=== PATIENT | male | born 1975 | race Hispanic/Latino ===

== ENCOUNTER 2017-06-11 12:54 | Emergency (ER) | payer OTHER ==
[2017-06-11 13:06] VITALS: BP 125/82; PULSE 74; RESP 20; TEMP 98.4; O2SAT 97
--- NOTE | 2017-06-11 15:31 | C.PDOC ---
History Of Present Illness 41 yr old male presents to the ER for evaluation of rash to his inner thighs for the past 1 week. Patient denies fever, chills, dysuria or leg pain. Time Seen by Provider: 06/11/17 13:30 Chief Complaint (Nursing): Abnormal Skin Integrity History Per: Patient History/Exam Limitations: no limitations Onset/Duration Of Symptoms: Days (1 week) Current Symptoms Are (Timing): Still Present Past Medical History Reviewed: Historical Data, Nursing Documentation, Vital Signs Vital Signs: Last Vital Signs Temp 98.4 F 06/11/17 13:02 Pulse 74 06/11/17 13:02 Resp 20 06/11/17 13:02 BP 125/82 06/11/17 13:02 Pulse Ox 97 06/11/17 15:33 Family History: States: No Known Family Hx - Social History Hx Alcohol Use: No Hx Substance Use: No - Immunization History Hx Tetanus Toxoid Vaccination: Yes Hx Influenza Vaccination: Yes Hx Pneumococcal Vaccination: No Review Of Systems Except As Marked, All Systems Reviewed And Found Negative. Constitutional: Negative for: Fever, Chills Genitourinary: Negative for: Dysuria Musculoskeletal: Negative for: Leg Pain Skin: Positive for: Rash (inner thighs) Physical Exam - Physical Exam Appears: Non-toxic, No Acute Distress Skin: Warm, Dry, Rash (papular rash noted medial aspect of bilateral thighs) Oral Mucosa: Moist Lips: Normal Appearing Respiratory: Normal Breath Sounds, No Rales, No Rhonchi, No Stridor, No Wheezing Extremity: Normal ROM, No Swelling Neurological/Psych: Oriented x3, Normal Speech Gait: Steady ED Course And Treatment O2 Sat by Pulse Oximetry: 97 (RA) Pulse Ox Interpretation: Normal Disposition - Disposition Referrals: [facility] Yolanda Huang, [Non-Staff] - Disposition: HOME/ ROUTINE Disposition Time: 14:30 Condition: GOOD Additional Instructions: Thank you for letting us take care of you today. The emergency medical care you received today was directed at your acute symptoms. If you were prescribed any medication, please fill it and take as directed. It may take several days for your symptoms to resolve. Return to the Emergency Department if your symptoms worsen, do not improve, or if you have any other problems. Please contact your doctor or call one of the physicians/clinics you have been referred to that are listed on the Patient Visit Information form that is included in your discharge packet. Bring any paperwork you were given at discharge with you along with any medications you are taking to your follow up visit. Our treatment cannot replace ongoing medical care by a primary care provider (PCP) outside of the emergency department. Thank you for allowing the [email or web address] team to be part of your care today. Follow up with your doctor in 3-4 days for re-evaluation and further management. Prescriptions: Cephalexin [cephalexin] 500 mg PO Q8 #21 cap Instructions: Folliculitis (ED) Forms: [employer] (Iranian) - Clinical Impression Clinical Impression: Dermatitis - Scribe Statement The provider has reviewed the documentation as recorded by the Daphneyibmeeta Tejeda Provider Attestation: All medical record entries made by the Daphneyibmeeta were at my direction and personally dictated by me. I have reviewed the chart and agree that the record accurately reflects my personal performance of the history, physical exam, medical decision making, and the department course for this patient. I have also personally directed, reviewed, and agree with the discharge instructions and disposition.
== END 2017-06-11 15:10 | disposition home or self-care (01) ==
LOC: C.ER 12:54
DX: L30.9 Dermatitis, unspecified (principal)

== ENCOUNTER 2017-12-02 21:32 | Emergency (ER) | payer OTHER ==
[2017-12-02 22:01] VITALS: BP 125/83; PULSE 100; RESP 20; TEMP 98.4; O2SAT 98
--- NOTE | 2017-12-02 22:05 | C.PDOC ---
History Of Present Illness 42 year old male presents to the ED requesting detox for heroin abuse. Patient states his last use of heroin was today in the afternoon [employer]. Patient initially had come in with a female vp product management also requesting detox for heroin abuse. Patient denies SI/HI, hallucinations, other substance abuse. Time Seen by Provider: 12/02/17 21:57 Chief Complaint (Nursing): Substance Abuse History Per: Patient History/Exam Limitations: no limitations Onset/Duration Of Symptoms: Hrs Current Symptoms Are (Timing): Still Present Suicide/Self Injury Attempted (Context): None Modifying Factor(s): Other (heroin) Associated Symptoms: denies: Depression, Suicidal Thoughts, Suicidal Plan Involuntary Hold By: None Recent travel outside of the [place]: No Additional History Per: Patient Past Medical History Reviewed: Historical Data, Nursing Documentation, Vital Signs Vital Signs: Last Vital Signs Temp 98.4 F 12/02/17 21:58 Pulse 100 H 12/02/17 21:58 Resp 20 12/02/17 21:58 BP 125/83 12/02/17 21:58 Pulse Ox 98 12/02/17 22:05 - Medical History PMH: No Chronic Diseases Surgical History: No Surg Hx Family History: States: Unknown Family Hx - Social History Hx Alcohol Use: No Hx Substance Use: Yes (Heroin) - Immunization History Hx Tetanus Toxoid Vaccination: Yes Hx Influenza Vaccination: Yes Hx Pneumococcal Vaccination: No Review Of Systems Constitutional: Negative for: Fever, Chills Cardiovascular: Negative for: Chest Pain, Palpitations Respiratory: Negative for: Cough, Shortness of Breath Gastrointestinal: Negative for: Nausea, Vomiting Psych: Negative for: Depression, Suicidal ideation Physical Exam - Physical Exam Appears: Non-toxic, No Acute Distress Skin: Normal Color, Warm, Dry Head: Atraumatic, Normacephalic Eye(s): bilateral: Normal Inspection Oral Mucosa: Moist Neck: Normal ROM, Supple Chest: Symmetrical Cardiovascular: Rhythm Regular Respiratory: Normal Breath Sounds, No Rales, No Rhonchi, No Wheezing Gastrointestinal/Abdominal: Soft, No Tenderness, No Guarding, No Rebound Extremity: Normal ROM, No Tenderness, No Swelling Extremity: Bilateral: Atraumatic Neurological/Psych: Oriented x3, Normal Speech Gait: Steady ED Course And Treatment O2 Sat by Pulse Oximetry: 98 (ON RA) Pulse Ox Interpretation: Normal - Physician Consult Information Time Consulting Physician Contacted: 22:03 Outcome Of Conversation: D/W CRISIS, NO DETOX BEDS AVAIL Medical Decision Making Medical Decision Making: Impression: detox Plan: * Patient was informed that no detox bed were available. Disposition Counseled Patient/Family Regarding: Diagnosis, Need For Followup - Disposition Referrals: DETOX,PRESCREEN [Other] Disposition: HOME/ ROUTINE Disposition Time: 22:04 Condition: GOOD Instructions: Polysubstance Abuse (DC) Forms: [employer], [place] (Japanese) - Clinical Impression Clinical Impression: Drug abuse - Scribe Statement The provider has reviewed the documentation as recorded by the Scribe Mando Carrera All medical record entries made by the Scribe were at my direction and personally dictated by me. I have reviewed the chart and agree that the record accurately reflects my personal performance of the history, physical exam, medical decision making, and the department course for this patient. I have also personally directed, reviewed, and agree with the discharge instructions and disposition.
== END 2017-12-02 22:29 | disposition home or self-care (01) ==
LOC: C.ER 21:32
DX: F19.10 Other psychoactive substance abuse, uncomplicated (principal)

== ENCOUNTER 2017-12-02 23:37 | Emergency (ER) | payer OTHER ==
--- NOTE | 2017-12-03 00:19 | C.PDOC ---
History Of Present Illness 42 year old male presents to the ED for evaluation of heroin withdrawal. Patient was seen earlier today requesting detox and was discharged. Patient reports he took some street suboxone with no improvement to the symptoms, patient last used heroin this afternoon [employer]. Patient is c/o body aches, jittery feeling, nausea. Patient denies SI/HI, hallucinations, CP, SOB, weakness, numbness. Time Seen by Provider: 12/03/17 00:03 Chief Complaint (Nursing): Medical Clearance History Per: Patient History/Exam Limitations: no limitations Onset/Duration Of Symptoms: Hrs Current Symptoms Are (Timing): Still Present Suicide/Self Injury Attempted (Context): None Modifying Factor(s): Other (Heroin) Associated Symptoms: denies: Depression, Suicidal Thoughts, Suicidal Plan Involuntary Hold By: None Recent travel outside of the [place]: No Additional History Per: Patient Past Medical History Reviewed: Historical Data, Nursing Documentation, Vital Signs Vital Signs: Last Vital Signs Temp 98.2 F 12/02/17 23:49 Pulse 108 H 12/02/17 23:49 Resp 20 12/02/17 23:49 BP 127/78 12/02/17 23:49 Pulse Ox 100 12/03/17 00:31 - Medical History PMH: No Chronic Diseases Surgical History: No Surg Hx Family History: States: Unknown Family Hx - Social History Hx Alcohol Use: No Hx Substance Use: Yes (Heroin) - Immunization History Hx Tetanus Toxoid Vaccination: Yes Hx Influenza Vaccination: Yes Hx Pneumococcal Vaccination: No Review Of Systems Constitutional: Positive for: Malaise. Negative for: Fever, Chills Cardiovascular: Negative for: Chest Pain, Palpitations Respiratory: Negative for: Cough, Shortness of Breath Gastrointestinal: Positive for: Nausea. Negative for: Vomiting, Diarrhea Skin: Negative for: Rash Neurological: Negative for: Weakness, Numbness Psych: Negative for: Depression, Suicidal ideation Physical Exam - Physical Exam Appears: Non-toxic, In Acute Distress (mild) Skin: Normal Color, Warm, Dry Head: Atraumatic, Normacephalic Eye(s): bilateral: Normal Inspection Oral Mucosa: Moist Neck: Normal ROM, Supple Chest: Symmetrical Cardiovascular: Rhythm Regular Respiratory: Normal Breath Sounds, No Rales, No Rhonchi, No Wheezing Gastrointestinal/Abdominal: Soft, No Tenderness, No Guarding, No Rebound Extremity: Normal ROM, No Tenderness, No Swelling Neurological/Psych: Oriented x3, Normal Speech, Other (no tremors) Gait: Steady ED Course And Treatment O2 Sat by Pulse Oximetry: 100 (ON RA) Pulse Ox Interpretation: Normal Medical Decision Making Medical Decision Making: Impression: pt states heroin withdrawal Plan: * Catapres 0.2 mg PO * Toradol 30 mg IM * Zofran 4 mg IVP Disposition Counseled Patient/Family Regarding: Diagnosis, Need For Followup - Disposition Disposition: HOME/ ROUTINE Disposition Time: 00:59 Condition: IMPROVED Instructions: Drug Withdrawal (DC) Forms: [employer] (Czech) - Clinical Impression Clinical Impression: Opiate withdrawal - Scribe Statement The provider has reviewed the documentation as recorded by the Scribe Mando Carrera All medical record entries made by the Scribe were at my direction and personally dictated by me. I have reviewed the chart and agree that the record accurately reflects my personal performance of the history, physical exam, medical decision making, and the department course for this patient. I have also personally directed, reviewed, and agree with the discharge instructions and disposition.
[2017-12-03 01:13] VITALS: BP 127/76; PULSE 98; RESP 18; TEMP 98; O2SAT 98
== END 2017-12-03 01:13 | disposition home or self-care (01) ==
LOC: C.ER 23:37
DX: F11.23 Opioid dependence with withdrawal (principal)
CPT/HCPCS: 96372; 99282; J1885

== ENCOUNTER 2017-12-13 15:57 | Inpatient (IN) | payer MEDICAID, OTHER ==
[2017-12-13 16:13] VITALS: RESP 18
--- NOTE | 2017-12-13 17:24 | C.PDOC ---
History Of Present Illness 42 y/o male patient presents to the ER requesting detox from heroin. He reports feeling cold sweats, abdominal pain, hot flashes, chills and body aches. The patient states he uses 15-20 bags a day via injection. He admits his last heroin use was 0300 in the morning. The patient denies any suicidal or homicidal ideations. Time Seen by Provider: 12/13/17 17:09 Chief Complaint (Nursing): Substance Abuse History/Exam Limitations: no limitations Onset/Duration Of Symptoms: Hrs Current Symptoms Are (Timing): Still Present Modifying Factor(s): Other (Heroin) Recent travel outside of the [place]: No Past Medical History Reviewed: Historical Data, Nursing Documentation, Vital Signs Vital Signs: Last Vital Signs Temp 98.5 F 12/13/17 20:21 Pulse 78 12/13/17 20:21 Resp 18 12/13/17 20:21 BP 111/68 12/13/17 20:21 Pulse Ox 98 12/13/17 20:21 - Medical History Other PMH: macular degeneration, legally blind Surgical History: No Surg Hx Family History: States: Unknown Family Hx - Social History Hx Alcohol Use: No Hx Substance Use: Yes (Heroin) - Immunization History Hx Tetanus Toxoid Vaccination: Yes Hx Influenza Vaccination: Yes Hx Pneumococcal Vaccination: Yes Review Of Systems Except As Marked, All Systems Reviewed And Found Negative. Constitutional: Positive for: Chills, Sweats. Negative for: Fever Gastrointestinal: Positive for: Abdominal Pain Physical Exam - Physical Exam Additional Physical Exam Comments: Constitutional: No acute distress. Head: Normocephalic. Atraumatic. Eyes: PERRL. ENT: Moist mucous membranes. Neck: Supple. Cardiovascular: Regular rate. Radial pulse 2+ bilaterally. Chest: No tenderness. Respiratory: Clear to auscultation bilaterally. GI: Soft. Nontender. Nondistended. Back: No CVA tenderness. Musculoskeletal: No tenderness or swelling of extremities. Skin: No rash. Neurologic: Alert, no focal deficit. ED Course And Treatment - Laboratory Results Result Diagrams: 12/13/17 18:09 12/13/17 18:09 O2 Sat by Pulse Oximetry: 98 (RA) Pulse Ox Interpretation: Normal Medical Decision Making Medical Decision Making: Impression: 42 y/o male requesting detox from heroin Plan: --Alcohol Serum --CMP --Drug Screen --CBC --UA 18:44- Patient is accepted by Dr. Baig ([id number]) for opioid disorder Disposition - Disposition Disposition: HOSPITALIZED Disposition Time: 18:44 Condition: FAIR - Clinical Impression Clinical Impression: Opioid use disorder, severe, dependence - PA / TOOL SUPERVISOR / Resident Statement MD/DO has reviewed & agrees with the documentation as recorded. - Scribe Statement The provider has reviewed the documentation as recorded by the Scribe (Montse Linton) Provider Attestation: All medical record entries made by the Scribe were at my direction and personally dictated by me. I have reviewed the chart and agree that the record accurately reflects my personal performance of the history, physical exam, medical decision making, and the department course for this patient. I have also personally directed, reviewed, and agree with the discharge instructions and disposition.
[2017-12-13 18:13] LABS: BASO # 0.1 K/uL (0.0-0.2); EOS # 0.3 K/uL (0.0-0.7); EOS % 4.7 % (0.0-4.0); HEMOGLOBIN 12.5 g/dL (12.0-18.0); LYMPH # 1.8 K/uL (1.0-4.3); LYMPH % 30.2 % (20.0-40.0); MEAN CELL VOLUME 85.7 fL (80.0-94.0); MEAN CORPUSCULAR HEMOGLOBIN 29.2 pg (27.0-31.0); MEAN PLATELET VOLUME 8.8 fL (7.2-11.7); MONO # 0.6 K/uL (0.0-0.8); MONO % 10.5 % (0.0-10.0); NEUT # 3.2 K/uL (1.8-7.0); NEUT % 53.6 % (50.0-75.0); NRBC % 0.1 % (0.0-2.0); RBC 4.3 Mil/uL (4.40-5.90); RED CELL DISTRIBUTION WIDTH 12.8 % (11.5-14.5)
[2017-12-13 18:18] LABS: SQUAMOUS EPITHIAL < 1 /hpf (0-5); URINE BACTERIA RARE (<OCC); URINE BILIRUBIN NEGATIVE (NEGATIVE); URINE BLOOD NEGATIVE (NEGATIVE); URINE CLARITY Clear (Clear); URINE COLOR Yellow (YELLOW); URINE GLUCOSE (UA) NORMAL (Normal); URINE LEUKOCYTE ESTERASE NEG Leu/uL (Negative); URINE PROTEIN NEGATIVE (NEGATIVE)
[2017-12-13 18:26] LABS: ALB/GLOB RATIO 1.3 (1.0-2.1); ALBUMIN 3.7 g/dL (3.5-5.0); ALT/SGPT 58 U/L (21-72); AST/SGOT 38 U/L (17-59); BLOOD UREA NITROGEN 12 mg/dL (9-20); CALCIUM 8.4 mg/dl (8.6-10.4); GFR AFRICAN-AMERICAN > 60; GFR NON-AFRICAN AMERICAN > 60
[2017-12-13 18:30] LABS: BARBITURATES, UR NEGATIVE (NEGATIVE); BENZODIAZEPINES, UR NEGATIVE (NEGATIVE)
[2017-12-13 18:47] LABS: OPIATES, UR POSITIVE (NEGATIVE); PHENCYCLIDINE, UR NEGATIVE (NEGATIVE)
--- NOTE | 2017-12-13 19:42 | PCM.BM ---
<Deidre Michel - Last Filed: 12/13/17 19:40> Treatment Plan Problems - Problems identified on initial assessmt potiential for opiate withdrawal Date Initiated: 12/13/17 Time Initiated: 19:41 Assessment reference: NA Status: Active Treatment assets and liabiliti Patient Assests: ADL independent, cognitively intact Patient Liabilities: substance abuse, medical problems, legal issue - Milieu Protocol Maintain good personal hygiene: daily Encourage regular showers, daily Remind patient to perform daily oral care, daily Assist patient to perform ADL's Maintain personal safety: every shift Educate patient to report safety concerns to staff, every shift Monitor environment for contraband/sharps Medication safety: Monitor for expected outcome, potential side effects: every shift, Assess barriers to learning: every shift, Assess readiness for medication education: every shift <Werner Baig - Last Filed: 12/16/17 14:40> - Diagnosis (1) Opioid use disorder, severe, dependence Status: Acute Interventions: 12/16/17 14:40 * Assess 7x/week regarding severity of withdrawal * Educate regarding risks, benefits, side effects and alternatives of medications * Use Motivational Interviewing for abstinence * Use CBT for relapse prevention * Medication management for withdrawal symptoms * Encourage medication assisted treatment *
[2017-12-13] MEDS ORDERED: Aluminum Hydroxide/Magnesium Hydroxide Susp (30 mL) PO PRN (21:45)
--- NOTE | 2017-12-14 17:51 | PCM.PSYCH ---
Initial Psychiatric Evaluation - Initial Psychiatric Evaluation Type of Admission: Voluntary Legal Status: Capacity Chief Complaint (in patient's own words): "I need detox" History of Present Illness and Precipitating Events: Pt is seen, chart reviewed, case discussed with staff. Pt is a 42 y/o male who is single and living in an apartment with his aunt in [place]; pt has a 7 y/o daughter. Pt has a hx of opioid use which began 9 years ago; pt currently uses 15-20 bags/ day IV into both arms; pt last used heroin at 3 am on 12/13 Pt has a hx of cocaine use which began 3 months ago; pt currently uses 5 bags 2- 3x/week. Pt denies alcohol, cigarettes, or other illicit drugs. Pts longest sobriety lasted 7 years; pt relapsed after macular degeneration led to him becoming legally blind. Pt has never been to rehab and has attended detox only once before in 2011 at [facility] [place]. Pt describes and displays significant withdrawal sxs, including cold sweats, abd pain, hot flashes, chills, body aches, nausea, and dizziness. He has high risk of relapse and OD Has poor support system and high risk environment. Past medical hx includes Hepatitis C and macular degeneration from which he is now legally blind. Family hx includes macular degeneration, which his grandma is also diagnosed with. No psych hx Current Medications: Active Medications Generic Name Dose Route Start Last Admin Trade Name Freq PRN Reason Stop Dose Admin Al Hydrox/Mg Hydrox/Simethicone 30 ml 12/13/17 21:45 Maalox 30 Ml PO TID PRN Indigestion / Heartburn Clonidine HCl 0.1 mg 12/13/17 21:45 Catapres PO Q8 PRN COWS Score More or Equal to 5 Hydroxyzine HCl 25 mg 12/13/17 21:45 Atarax PO Q4H PRN Anxiety Ibuprofen 600 mg 12/13/17 21:45 Motrin Tab PO Q6H PRN Pain, moderate (4-7) Loperamide HCl 2 mg 12/13/17 21:45 Imodium PO Q8 PRN Diarrhea Methadone HCl 15 mg 12/14/17 10:00 12/14/17 10:33 Methadone PO 12/18/17 09:59 15 mg Q24H SALLY Administration Taper Ondansetron HCl 4 mg 12/13/17 21:45 Zofran Tab PO Q8 PRN Nausea/Vomiting Trazodone HCl 100 mg 12/13/17 21:45 Desyrel PO HS PRN Insomnia Past Psychiatric History - Past Psychiatric History Previous Treatment History: None Pertinent Medical Hx (Current Medical&Sleep Prob, Allergies): Allergies Allergy/AdvReac Type Severity Reaction Status Date / Time shrimp Allergy Verified 12/13/17 16:13 No Known Home Med 12/02/17 Review of Systems - Psychiatric Psychiatric: Abnormal Sleep Pattern, Anxiety, Difficulty Concentrating. absent : Hallucinations, Homicidal Ideation, Paranoia, Suicidal Ideation Mental Status Examination - Personal Presentation Personal Presentation: Looks stated age - Affect Affect: Constricted - Motor Activity Motor Activity: Calm - Reliability in Providing Information Reliability in Providing Information: Good - Speech Speech: Organized - Mood Mood: Anxious - Formal Thought Process Formal Thought Process: No Impairment - Cognitive Functions Orientation: Person, Place, Situation, Time Sensorium: Alert Attention/Concentration: Attentive Abstract Thinking: [place] Estimate of Intelligence: Average Judgement: Intact, as evidence by: Insight regarding need for hospitalization Memory: Recent intact, as evidence by: Ability to recall events of the day, Remote intact, as evidenced by: Ability to recall historical events - Risk Risk: Withdrawal, Diminished functioning - Strength & Assets Inventory Strength & Assets Inventory: Cooperative - Limitations Limitations: Other DSM 5 DX - DSM 5 DSM 5 Diagnosis: Opioid Withdrawal Opioid Use Disorder, Severe Cocaine Use Disorder, Severe - Recommended/Plan of Treatment Treatment Recommendations and Plan of Treatment: Taper with methadone Gabapentin for augmentation if needed As needed medications All risks, benefits and alternatives of the meds discussed, and the pt agreed and understood. Attend groups and activities Supportive therapy and psychoeducation MT for abstinence CBT for relapse prevention Encourage MAT Refer to rehab or IOP, and self-help groups Smoking cessation with MT Nicotine patch if needed 35 min Projected ELOS: 4 days Prognosis: good w treatment - Smoking Cessation Smoking Cessation Initiated: Yes
--- NOTE | 2017-12-15 12:14 | PCM.PYCHPN ---
Psychiatric Progress Note - Psychiatric Progress Note Patient seen today, length of contact: 16 min Patient Chief Complaint: "I am not well" Problems Identified/Issues Discussed: The pt is seen, chart reviewed, case discussed with staff. Support and psychoeducation given, CBT and LA used briefly No new symptoms reported, improving slowly and needs more time No SEs from medications, risks discussed. After care discussed Medication Change: Yes (detox changes daily) Medical Record Reviewed: Yes Mental Status Examination - Cognitive Function Orientation: Person, Place, Situation, Time Memory: Intact Attention: WNL Concentration: Poor Association: WNL Fund of Knowledge: WNL - Mood Mood: Anxious - Affect Affect: Constricted - Speech Speech: Appropriate - Formal Thought Process Formal Thought Process: No Impairment - Suicidal Ideation Suicidal Ideation: No - Homicidal Ideation Homicidal Ideation: No Goal/Treatment Plan - Goal/Treatment Plan Need for Continued Stay: Discharge may exacerbated symptoms, Failed transitioning Progress Toward Problem(s) and Goals/Treatment Plan: Taper with methadone Gabapentin for augmentation if needed As needed medications All risks, benefits and alternatives of the meds discussed, and the pt agreed and understood. Attend groups and activities Supportive therapy and psychoeducation LA for abstinence CBT for relapse prevention Encourage MAT Refer to rehab or IOP, and self-help groups Smoking cessation with LA Nicotine patch if needed
--- NOTE | 2017-12-16 14:42 | PCM.PYCHPN ---
Psychiatric Progress Note - Psychiatric Progress Note Patient seen today, length of contact: 16 min Patient Chief Complaint: "I am withdrawing" Problems Identified/Issues Discussed: The pt is seen, chart reviewed, case discussed with staff. The pt is compliant with medications and reports no side-effects. Symptoms are improving but needs more time to stabilize. Extra dose of methadone and zofran given due to ongoing wdw sxs Pt attends groups and activities. Support given, psycho-education provided. After care discussed. Medication Change: Yes (detox changes daily) Medical Record Reviewed: Yes Mental Status Examination - Cognitive Function Orientation: Person, Place, Situation, Time Memory: Intact Attention: WNL Concentration: Poor Association: WNL Fund of Knowledge: WNL - Mood Mood: Anxious - Affect Affect: Constricted - Speech Speech: Appropriate - Formal Thought Process Formal Thought Process: No Impairment - Suicidal Ideation Suicidal Ideation: No - Homicidal Ideation Homicidal Ideation: No Goal/Treatment Plan - Goal/Treatment Plan Need for Continued Stay: Discharge may exacerbated symptoms, Failed transitioning Progress Toward Problem(s) and Goals/Treatment Plan: Taper with methadone Gabapentin for augmentation if needed As needed medications All risks, benefits and alternatives of the meds discussed, and the pt agreed and understood. Attend groups and activities Supportive therapy and psychoeducation IL for abstinence CBT for relapse prevention Encourage MAT Refer to rehab or IOP, and self-help groups Smoking cessation with IL Nicotine patch if needed Estimated Date of D/C: 12/17/17
[2017-12-17 06:48] VITALS: TEMP 98.6
--- NOTE | 2017-12-17 08:37 | PCM.PYCHDC ---
Mental Status Examination - Mental Status Examination Orientation: Person, Place, Situation, Time Memory: Intact Mood: Anxious Affect: Broad Speech: Appropriate Attention: WNL Concentration: WNL Association: WNL Fund of Knowledge: WNL Formal Thought Process: No Impairment Suicidal Ideation: No Current Homicidal Ideation?: No Discharge Summary - Discharge Note Reason for Hospitalization: Opioid detox Consultations:: List each consultation separately and include: 1. Reason for request. 2. Findings. 3. Follow-up Summary of Hospital Course include:: 1. Description of specific treatment plan utilized for patients during their course of treatmen. 2. Summarize the time- course for resolution of acute symptoms and/or regressed behaviors. 3. Describe issues identified and worked on during hospitalization. 4. Describe medication utilized. 5. Describe medical problems identified and treated. 6. Reassessment of suicide risk Summary of Hospital Course: Pt is seen, chart reviewed, case discussed with staff. On admission: Pt is a 42 y/o male who is single and living in an apartment with his aunt in [place]; pt has a 7 y/o daughter. Pt has a hx of opioid use which began 9 years ago; pt currently uses 15-20 bags/ day IV into both arms; pt last used heroin at 3 am on 12/13 Pt has a hx of cocaine use which began 3 months ago; pt currently uses 5 bags 2- 3x/week. Pt denies alcohol, cigarettes, or other illicit drugs. Pts longest sobriety lasted 7 years; pt relapsed after macular degeneration led to him becoming legally blind. Pt has never been to rehab and has attended detox only once before in [address] [facility]. Pt describes and displays significant withdrawal sxs, including cold sweats, abd pain, hot flashes, chills, body aches, nausea, and dizziness. He has high risk of relapse and OD Has poor support system and high risk environment. Past medical hx includes Hepatitis C and macular degeneration from which he is now legally blind. Family hx includes macular degeneration, which his grandma is also diagnosed with. No psych hx Hospital course: The pt was admitted and started on treatment with psychotherapy, support, psychoeducation and medications. KS and CBT used. The pt attended groups and activities, as well as milieu therapy. All the risks and benefits of medications are discussed and the patient understood and agreed. The pt improved with the treatments provided. After care discussed with the patient. He is waitlisted at [facility]. - Final Diagnosis (DSM 5) Condition upon Discharge: IMPROVED DSM 5: Opioid Withdrawal Opioid Use Disorder, Severe Cocaine Use Disorder, Severe Disposition: HOME/ ROUTINE Follow-up Treatment Plan: Continue below medications after discharge. Follow after care plan as discussed. Use relapse prevention skills Return to ER or call 911 if suicidal, homicidal or symptoms relapse. Stay away from stress, alcohol and drugs. See primary doctor regularly and get labs. Prescriptions/Medication Reconciliation: hydrOXYzine HCl [Atarax] 25 mg PO DAILY PRN #30 tab PRN Reason: Anxiety QUEtiapine [SEROquel] 50 mg PO HS #30 tab traZODone [Desyrel] 100 mg PO HS PRN #30 tab PRN Reason: Insomnia
[2017-12-17 08:47] VITALS: BP 110/71; PULSE 84; O2SAT 98
== END 2017-12-17 10:50 | disposition home or self-care (01) | DRG 745 ==
LOC: C.ER 15:57 → C.9E 18:51 → C.7D 19:38
PROVIDERS: ADMIT Psychiatry & Neurology Psychiatry; ATTEND Psychiatry & Neurology Psychiatry
PROC: HZ2ZZZZ Detoxification Services for Substance Abuse Treatment (ICD-10-PCS; principal; 2017-12-13)
PROC: HZ52ZZZ Individual Psychotherapy for Substance Abuse Treatment, Cognitive-Behavioral (ICD-10-PCS; 2017-12-13)
PROC: HZ59ZZZ Individual Psychotherapy for Substance Abuse Treatment, Supportive (ICD-10-PCS; 2017-12-13)
PROC: HZ56ZZZ Individual Psychotherapy for Substance Abuse Treatment, Psychoeducation (ICD-10-PCS; 2017-12-13)
PROC: HZ42ZZZ Group Counseling for Substance Abuse Treatment, Cognitive-Behavioral (ICD-10-PCS; 2017-12-13)
PROC: HZ46ZZZ Group Counseling for Substance Abuse Treatment, Psychoeducation (ICD-10-PCS; 2017-12-13)
PROC: GZHZZZZ Group Psychotherapy (ICD-10-PCS; 2017-12-13)
PROC: GZ58ZZZ Individual Psychotherapy, Cognitive-Behavioral (ICD-10-PCS; 2017-12-13)
PROC: GZ56ZZZ Individual Psychotherapy, Supportive (ICD-10-PCS; 2017-12-13)
DX: F11.23 Opioid dependence with withdrawal (principal); F14.20 Cocaine dependence, uncomplicated; H54.8 Legal blindness, as defined in USA; H35.30 Unspecified macular degeneration; F41.9 Anxiety disorder, unspecified; G47.00 Insomnia, unspecified

== ENCOUNTER 2018-02-05 18:22 | Inpatient (IN) | payer OTHER ==
[2018-02-05 19:24] LABS: BASO # 0.1 K/uL (0.0-0.2); BASO % 0.5 % (0.0-2.0); EOS # 0.2 K/uL (0.0-0.7); EOS % 0.8 % (0.0-4.0); HEMOGLOBIN 13.6 g/dL (12.0-18.0); LYMPH # 2.9 K/uL (1.0-4.3); LYMPH % 15.5 % (20.0-40.0); MEAN CORPUSCULAR HEMOGLOBIN 28.8 pg (27.0-31.0); MEAN CORPUSCULAR HGB CONC 33.5 g/dL (33.0-37.0); MEAN PLATELET VOLUME 8.6 fL (7.2-11.7); MONO # 1.3 K/uL (0.0-0.8); MONO % 6.9 % (0.0-10.0); NEUT # 14.4 K/uL (1.8-7.0); NEUT % 76.3 % (50.0-75.0); RBC 4.72 Mil/uL (4.40-5.90); RED CELL DISTRIBUTION WIDTH 12.7 % (11.5-14.5); WHITE BLOOD COUNT 18.9 K/uL (4.8-10.8)
[2018-02-05 19:30] LABS: SQUAMOUS EPITHIAL < 1 /hpf (0-5); URINE BACTERIA RARE (<OCC); URINE BILIRUBIN NEGATIVE (NEGATIVE); URINE BLOOD NEGATIVE (NEGATIVE); URINE CLARITY Clear (Clear); URINE COLOR Yellow (YELLOW); URINE GLUCOSE (UA) NORMAL (Normal); URINE LEUKOCYTE ESTERASE NEG Leu/uL (Negative); URINE PROTEIN NEGATIVE (NEGATIVE)
[2018-02-05 19:38] LABS: ALB/GLOB RATIO 1.3 (1.0-2.1); ALT/SGPT 29 U/L (21-72); AST/SGOT 14 U/L (17-59); BLOOD UREA NITROGEN 19 mg/dL (9-20); CALCIUM 9.2 mg/dl (8.6-10.4); GFR NON-AFRICAN AMERICAN > 60
[2018-02-05 19:47] LABS: BARBITURATES, UR NEGATIVE (NEGATIVE); BENZODIAZEPINES, UR NEGATIVE (NEGATIVE)
[2018-02-05 19:48] LABS: OPIATES, UR POSITIVE (NEGATIVE); PHENCYCLIDINE, UR POSITIVE (NEGATIVE)
--- NOTE | 2018-02-05 21:47 | C.PDOC ---
History Of Present Illness 42 year old male presents to ED requesting heroin detox. Patient denies any other drug use or any medical complaints. Time Seen by Provider: 02/05/18 19:21 Chief Complaint (Nursing): Substance Abuse History Per: Patient History/Exam Limitations: no limitations Onset/Duration Of Symptoms: Days Current Symptoms Are (Timing): Still Present Past Medical History Reviewed: Historical Data, Nursing Documentation, Vital Signs Vital Signs: Last Vital Signs Temp 98.4 F 02/05/18 21:37 Pulse 96 H 02/05/18 21:37 Resp 20 02/05/18 21:37 BP 100/60 02/05/18 21:37 Pulse Ox 95 02/05/18 21:37 - Medical History PMH: Denies: Diabetes, Hepatitis, HIV, HTN, Seizures, Sexually Transmitted Disease Family History: States: No Known Family Hx - Social History Hx Alcohol Use: No Hx Substance Use: No - Immunization History Hx Tetanus Toxoid Vaccination: Yes Hx Influenza Vaccination: No Hx Pneumococcal Vaccination: No Review Of Systems Except As Marked, All Systems Reviewed And Found Negative. Constitutional: Negative for: Fever Cardiovascular: Negative for: Chest Pain Respiratory: Negative for: Shortness of Breath Gastrointestinal: Negative for: Nausea, Vomiting, Abdominal Pain, Diarrhea Neurological: Negative for: Weakness, Numbness Physical Exam - Physical Exam Appears: Non-toxic, No Acute Distress Skin: Warm, Dry Head: Atraumatic, Normacephalic Eye(s): bilateral: Normal Inspection, PERRL, EOMI Oral Mucosa: Moist Chest: Symmetrical Cardiovascular: Rhythm Regular, No Murmur Respiratory: Normal Breath Sounds, No Rales, No Rhonchi, No Wheezing Gastrointestinal/Abdominal: Soft, No Tenderness Neurological/Psych: Oriented x3, Normal Speech Gait: Steady ED Course And Treatment - Laboratory Results Result Diagrams: 02/05/18 19:17 02/05/18 19:17 O2 Sat by Pulse Oximetry: 95 (RA) Pulse Ox Interpretation: Normal - Radiology CXR: Interpreted by Me CXR Interpretation: Yes: No Acute Disease. No: Infiltrates Progress Note: Labs, chest x-ray, and urinalysis ordered. WBC elevated:Chest was ordered, UA wnl, pt denies URI sx and afebrile. Patient evaluated by crisis for possible admission. Disposition - Disposition Disposition: HOSPITALIZED Disposition Time: 22:35 Condition: STABLE - Clinical Impression Clinical Impression: Opioid use disorder, severe, dependence - PA / NURSING HOME ADMISSIONS DIRECTOR / Resident Statement MD/DO has reviewed & agrees with the documentation as recorded. - Scribe Statement The provider has reviewed the documentation as recorded by the Daphneyibmeeta Tirado All medical record entries made by the Abiel were at my direction and personally dictated by me. I have reviewed the chart and agree that the record accurately reflects my personal performance of the history, physical exam, medical decision making, and the department course for this patient. I have also personally directed, reviewed, and agree with the discharge instructions and disposition.
--- NOTE | 2018-02-05 21:47 | C.PDOC ---
Time Seen by Provider: 02/05/18 19:21 Chief Complaint (Nursing): Substance Abuse Past Medical History Vital Signs: Last Vital Signs Temp 98.4 F 02/05/18 21:37 Pulse 96 H 02/05/18 21:37 Resp 20 02/05/18 21:37 BP 100/60 02/05/18 21:37 Pulse Ox 95 02/05/18 21:37 - Medical History PMH: Denies: Diabetes, Hepatitis, HIV, HTN, Seizures, Sexually Transmitted Disease - Social History Hx Alcohol Use: No Hx Substance Use: No - Immunization History Hx Tetanus Toxoid Vaccination: Yes Hx Influenza Vaccination: No Hx Pneumococcal Vaccination: No ED Course And Treatment - Laboratory Results Result Diagrams: 02/05/18 19:17 02/05/18 19:17 O2 Sat by Pulse Oximetry: 95 Progress Note: Pt is medically cleared for detox Disposition - Disposition Forms: [facility] (Pashto)
[2018-02-05] MEDS ORDERED: Aluminum Hydroxide/Magnesium Hydroxide Susp (30 mL) PO PRN (22:49)
--- NOTE | 2018-02-06 00:24 | PCM.BM ---
Treatment Plan Problems - Problems identified on initial assessmt Problem 1 Date Initiated: 02/06/18 (heroin abuse) Time Initiated: 00:23 Assessment reference: NA Status: Active (Heroin abuse) Treatment assets and liabiliti Patient Assests: cooperative, self-reliant, ADL independent Patient Liabilities: poor support system, substance abuse, other (legally blind) - Milieu Protocol Maintain good personal hygiene: daily Encourage regular showers, daily Remind patient to perform daily oral care, daily Assist patient to perform ADL's Conduct patient checks and document Observation sheet: Q15 minutes Maintain personal safety: every shift Educate patient to report safety concerns to staff, every shift Monitor environment for contraband/sharps Medication safety: Monitor for expected outcome, potential side effects: every shift, Assess barriers to learning: every shift, Assess readiness for medication education: every shift
[2018-02-06 06:12] VITALS: PULSE 90
--- NOTE | 2018-02-06 07:43 | PCM.PSYCH ---
Initial Psychiatric Evaluation - Initial Psychiatric Evaluation Type of Admission: Voluntary Legal Status: Capacity Chief Complaint (in patient's own words): I wanted to get help.' History of Present Illness and Precipitating Events: This is a 42 years old male, who is currently unemployed and homeless, came to the [facility] ED to get help in opioid detox. Patient denies any past history of any inpatient psychiatric hospitalizations and denies any follow-up with any psychiatrist. Patient reports history of few detoxes in the past. His last detox was last year at . Pt reports of going to rehab [facility] afterwards. He reports of abusing 10-12 bags daily. As per the patient last night, he abused almost 10 bags, started developing withdrawal symptoms, so yesterday he came in to get help in detox. Patient reports withdrawal symptoms including nausea, sweating, shakes, headaches, joint pain, hot flashes, runny nose and anxiety. Patient reports anxiety but denies any depressed mood or any feelings of hopelessness, helplessness or worthlessness. Patient denies any auditory or visual hallucinations or any psychotic symptoms. He denies any suicidal ideation or homicidal ideation. He denies any manic symptoms. PMH: legally blind Current Medications: Active Medications Generic Name Dose Route Start Last Admin Trade Name Freq PRN Reason Stop Dose Admin Al Hydrox/Mg Hydrox/Simethicone 30 ml 02/05/18 22:49 Maalox 30 Ml PO TID PRN Indigestion / Heartburn Clonidine HCl 0.1 mg 02/05/18 22:49 Catapres PO Q8 PRN COWS Score More or Equal to 5 Hydroxyzine HCl 25 mg 02/05/18 22:49 Atarax PO Q6 PRN Agitation Loperamide HCl 2 mg 02/05/18 22:49 Imodium PO Q8 PRN Diarrhea Methadone HCl 20 mg 02/06/18 10:00 Methadone PO 02/10/18 09:59 DAILY SALLY Taper Ondansetron HCl 4 mg 02/05/18 22:49 Zofran Tab PO Q8 PRN Nausea/Vomiting Pseudoephedrine HCl 60 mg 02/05/18 22:49 Sudafed Tab PO QID PRN Nasal/Sinus Congestion Trazodone HCl 50 mg 02/05/18 23:00 02/05/18 23:55 Desyrel PO Not Given HS SALLY Past Psychiatric History - Past Psychiatric History Previous Treatment History: Inpatient Pertinent Medical Hx (Current Medical&Sleep Prob, Allergies): Allergies Allergy/AdvReac Type Severity Reaction Status Date / Time shrimp Allergy ANAPHYLAXIS Uncoded 02/05/18 18:49 No Known Home Med 02/05/18 Review of Systems - Review of Systems All systems: reviewed and no additional remarkable complaints except - Psychiatric Psychiatric: Anxiety, Irritability. absent: Suicidal Ideation Mental Status Examination - Personal Presentation Personal Presentation: Looks stated age - Affect Affect: Constricted - Motor Activity Motor Activity: Calm - Reliability in Providing Information Reliability in Providing Information: Fair - Speech Speech: Organized - Mood Mood: Anxious - Formal Thought Process Formal Thought Process: No Impairment - Obsessions/Compulsions Obsessions: No Compulsions: No - Cognitive Functions Orientation: Person, Place, Situation, Time Sensorium: Alert Attention/Concentration: Attentive Abstract Thinking: Winston Estimate of Intelligence: Below average Judgement: Imparied, as evidence by: Poor judgement, Intact, as evidence by: Insight regarding need for hospitalization - Risk Risk: Withdrawal, Diminished functioning - Limitations Limitations: Living alone DSM 5 DX - DSM 5 DSM 5 Diagnosis: Opioid withdrawal Opioid use disorder severe Cannabis use disorder severe PCP use disorder severe - Recommended/Plan of Treatment Treatment Recommendations and Plan of Treatment: Opioid withdrawal Opioid use disorder severe Cannabis use disorder severe PCP use disorder severe -Taper with methadone -Gabapentin for augmentation if needed -Trazodone for insomnia -As needed medications -All risks, benefits and alternatives of the meds discussed, and the pt agreed and understood. -Attend groups and activities -Supportive therapy and psychoeducation -AK for abstinence -CBT for relapse prevention -Encourage MAT -Refer to rehab or IOP, and self-help groups -Smoking cessation with AK -Nicotine patch if needed - Smoking Cessation Smoking Cessation Initiated: No
[2018-02-06 08:48] VITALS: BP 113/71; RESP 20; TEMP 98.6; O2SAT 99
--- NOTE | 2018-02-06 09:30 | RAD ---
Date of service: 02/05/2018 HISTORY: high WBC COMPARISON: No prior. TECHNIQUE: Chest PA and lateral FINDINGS: LUNGS: No active pulmonary disease. PLEURA: No significant pleural effusion identified. No pneumothorax apparent. CARDIOVASCULAR: Normal. OSSEOUS STRUCTURES: No significant abnormalities. VISUALIZED UPPER ABDOMEN: Normal. OTHER FINDINGS: None. IMPRESSION: No active disease.
--- NOTE | 2018-02-06 21:57 | PCM.PYCHDC ---
Mental Status Examination - Mental Status Examination Orientation: Person, Place, Situation, Time Memory: Intact Mood: Neutral Affect: Constricted Speech: Soft Attention: WNL Concentration: WNL Association: WNL Fund of Knowledge: WNL Formal Thought Process: No Impairment Description of patient's judgement and insight: partially impaired Psychotic Thoughts and Behaviors: denies any AVH Suicidal Ideation: No Current Homicidal Ideation?: No Discharge Summary - Discharge Note Reason for Hospitalization: This is a 42 years old male, who is currently unemployed and homeless, came to the [facility] ED to get help in opioid detox. Patient denies any past history of any inpatient psychiatric hospitalizations and denies any follow-up with any psychiatrist. Patient reports history of few detoxes in the past. His last detox was last year at . Pt reports of going to rehab [facility] afterwards. He reports of abusing 10-12 bags daily. As per the patient last night, he abused almost 10 bags, started developing withdrawal symptoms, so yesterday he came in to get help in detox. Patient reports withdrawal symptoms including nausea, sweating, shakes, headaches, joint pain, hot flashes, runny nose and anxiety. Patient reports anxiety but denies any depressed mood or any feelings of hopelessness, helpl essness or worthlessness. Patient denies any auditory or visual hallucinations or any psychotic symptoms. He denies any suicidal ideation or homicidal ideation. He denies any manic symptoms. Consultations:: List each consultation separately and include: 1. Reason for request. 2. Findings. 3. Follow-up Summary of Hospital Course include:: 1. Description of specific treatment plan utilized for patients during their course of treatmen. 2. Summarize the time- course for resolution of acute symptoms and/or regressed behaviors. 3. Describe issues identified and worked on during hospitalization. 4. Describe medication utilized. 5. Describe medical problems identified and treated. 6. Reassessment of suicide risk Summary of Hospital Course: Patient received methadone, and reported that he is feeling better. He demanded to get signed out AMA. However, patient denied any feelings of hopelessness, helplessness, and worthlessness, denied any problem with the sleep or appetite, denied suicidal ideation or homicidal ideation. Pt denied any auditory or visual hallucinations. He denied any withdrawal symptoms. - Final Diagnosis (DSM 5) Condition upon Discharge: STABLE DSM 5: Opioid withdrawal Opioid use disorder severe Cannabis use disorder severe PCP use disorder severe Disposition: AGAINST MEDICAL ADVICE Follow-up Treatment Plan: Education: Pt was educated and counseled about the risks and benefits of taking and not taking medications. Pt was educated and counseled about the risks of drinking and abusing drugs. Pt was educated and counseled to go to the ER or call 911 if pt develop suicidal ideation or homicidal ideation, worsening of symptoms or severe side effects of the meds. - Smoking Cessation Smoking Cessation Medication prescribed: No - Antipsychotic Medications Pt discharged on 2 or more routine antipsychotic medications: No
== END 2018-02-06 10:30 | disposition left against medical advice (07) | DRG 770 ==
LOC: C.ER 18:22 → MERGE 22:38 → C.7D 22:38
PROVIDERS: ADMIT Psychiatry & Neurology Psychiatry; ATTEND Psychiatry & Neurology Psychiatry
DX: F11.23 Opioid dependence with withdrawal (principal); F16.20 Hallucinogen dependence, uncomplicated; F12.20 Cannabis dependence, uncomplicated; F41.9 Anxiety disorder, unspecified; H54.8 Legal blindness, as defined in USA; Z59.0 Homelessness

== ENCOUNTER 2018-02-18 21:47 | Emergency (ER) | payer MEDICAID, OTHER ==
[2018-02-18] MEDS ORDERED: Sodium Chloride 0.9% 1,000 ML IV STA (22:44)
[2018-02-18 22:45] LABS: VENOUS BLOOD GAS BASE EXCESS -3.8 mmol/L (0.0-2.0); VENOUS BLOOD GAS PCO2 35 mmHg (40-60); VENOUS BLOOD GAS PO2 52 mm/Hg (30-55); VENOUS BLOOD PH 7.38 (7.32-7.43)
--- NOTE | 2018-02-18 22:47 | C.PDOC ---
History Of Present Illness 42 year old male presents to the ED c/o abscess in his left arm for the past 4-5 days. Patient reports he first noticed the abscess on his left forearm 4-5 days ago. Patient reports pain worsens with palpation of the area and is associated with a mild fever. Patient reports using IV drugs. Patient denies nausea, vomit, CP, SOB, weakness, numbness. Time Seen by Provider: 02/18/18 22:33 Chief Complaint (Nursing): Abnormal Skin Integrity History Per: Patient History/Exam Limitations: no limitations Onset/Duration Of Symptoms: Days (4-5) Current Symptoms Are (Timing): Still Present Location Of Injury: Left: Arm Quality Of Symptoms: Painful, Swollen Recent travel outside of the [place]: No Additional History Per: Patient Past Medical History Reviewed: Historical Data, Nursing Documentation, Vital Signs Vital Signs: Last Vital Signs Temp 100.4 F H 02/18/18 22:35 Pulse 116 H 02/18/18 22:01 Resp 18 02/18/18 22:01 BP 133/77 02/18/18 22:01 Pulse Ox 96 02/18/18 22:01 - Medical History PMH: No Chronic Diseases Denies: Diabetes, Hepatitis, HIV, HTN, Chronic Kidney Disease, Seizures, Sexually Transmitted Disease Surgical History: No Surg Hx - [facility] Procedures DETOXIFICATION SERVICES FOR SUBSTANCE ABUSE TREATMENT (12/13/17) GROUP DIRECTOR BUSINESS INTEGRATION FOR SUBSTANCE ABUSE TREATMENT, PSYCHOEDUCATION (12/13/17) GROUP DIRECTOR BUSINESS INTEGRATION FOR SUBSTANCE ABUSE, COGNITIVE BEHAVIORAL (12/13/17) GROUP PSYCHOTHERAPY (12/13/17) INDIV PSYCHOTHERAPY FOR SUBSTANCE ABUSE TREATMENT, SUPPORT (12/13/17) INDIV PSYCHOTHERAPY FOR SUBSTANCE ABUSE, COGNITIV BEHAVIORAL (12/13/17) INDIV PSYCHOTHERAPY FOR SUBSTANCE ABUSE, PSYCHOEDUCATION (12/13/17) INDIVIDUAL PSYCHOTHERAPY, COGNITIVE-BEHAVIORAL (12/13/17) INDIVIDUAL PSYCHOTHERAPY, SUPPORTIVE (12/13/17) Family History: States: Unknown Family Hx - Social History Hx Alcohol Use: No Hx Substance Use: Yes (TODAY) - Immunization History Hx Tetanus Toxoid Vaccination: Yes Hx Influenza Vaccination: No Hx Pneumococcal Vaccination: Yes Review Of Systems Except As Marked, All Systems Reviewed And Found Negative. Musculoskeletal: Positive for: Arm Pain Skin: Positive for: Other (asbcess) Physical Exam - Physical Exam Additional Physical Exam Comments: Constitutional: No acute distress. Head: Normocephalic. Atraumatic. Eyes: PERRL. ENT: Moist mucous membranes. Neck: Supple. Cardiovascular: Regular rate. Radial pulse 2+ bilaterally. Tachycardic Chest: No tenderness. Respiratory: Clear to auscultation bilaterally. GI: Soft. Nontender. Nondistended. Back: No CVA tenderness. Musculoskeletal: No tenderness or swelling of extremities. Skin: No rash. Fluctuant erythematous swelling to left antecubital fossa, tender to palpation and with surrounding erythema Neurologic: Alert, no focal deficit. ED Course And Treatment - Laboratory Results Result Diagrams: 02/18/18 22:35 02/18/18 22:35 O2 Sat by Pulse Oximetry: 96 (ON RA) Pulse Ox Interpretation: Normal Medical Decision Making Medical Decision Making: Plan: * VBG * Labs * Rocephin IVPB * Blood culture * IV fluids * UA Instructed to return to ED for worsening erythema, fever, chills, or any other problem. Disposition - Disposition Referrals: Alyssa Woodall MD [Medical Doctor] - Disposition: HOME/ ROUTINE Disposition Time: 23:46 Condition: STABLE Prescriptions: Cephalexin [cephalexin] 500 mg PO Q8H #30 cap Sulfamethoxazole/Trimethoprim [Bactrim DS 800 mg-160 mg] 1 tab PO BID #20 tab Instructions: Skin Abscess Forms: [facility] (Mozambican) - Clinical Impression Clinical Impression: Abscess - Scribe Statement The provider has reviewed the documentation as recorded by the Scribe Mando Carrera All medical record entries made by the Scribe were at my direction and personally dictated by me. I have reviewed the chart and agree that the record accurately reflects my personal performance of the history, physical exam, medical decision making, and the department course for this patient. I have also personally directed, reviewed, and agree with the discharge instructions and disposition. Incision and Drainage - Time Out Time Out: Side verified, Site verified, Patient ID confirmed, Sterile procedures obs. - Consent obtained Consent obtained: Verbal - Performed by Performed by: Attending Physician - Indications Indications: Cutaneous abscess - Contraindications Contraindications: None - Location Location: Antecubital - Anesthetic Technique Anesthetic Technique: Local - Anesthetic Anesthetic: Lidocaine 2% - Procedure Procedure: cm incision (1), Overlying area fluctuance, # scalpel used (10), Explored for loculations - Drained Drained: ml pus (0) - Post-procedure Post procedure: Dressed - Complications Complications: None - Patient tolerated procedure Patient tolerated procedure: Well
[2018-02-18 22:48] LABS: BASO # 0.1 K/uL (0.0-0.2); BASO % 0.6 % (0.0-2.0); EOS # 0.2 K/uL (0.0-0.7); EOS % 1.5 % (0.0-4.0); HEMOGLOBIN 12.9 g/dL (12.0-18.0); LYMPH # 1.1 K/uL (1.0-4.3); LYMPH % 10.3 % (20.0-40.0); MEAN CELL VOLUME 86.2 fL (80.0-94.0); MEAN CORPUSCULAR HEMOGLOBIN 29.5 pg (27.0-31.0); MEAN CORPUSCULAR HGB CONC 34.2 g/dL (33.0-37.0); MEAN PLATELET VOLUME 8.9 fL (7.2-11.7); MONO # 0.8 K/uL (0.0-0.8); MONO % 7.3 % (0.0-10.0); NEUT # 8.8 K/uL (1.8-7.0); NEUT % 80.3 % (50.0-75.0); RBC 4.37 Mil/uL (4.40-5.90); RED CELL DISTRIBUTION WIDTH 12.6 % (11.5-14.5)
[2018-02-18] MEDS ORDERED: Lidocaine 2% MPF (5 ml) Inj ONE (22:57)
[2018-02-18 22:58] LABS: ALB/GLOB RATIO 1.3 (1.0-2.1); ALBUMIN 4.2 g/dL (3.5-5.0); ALT/SGPT 30 U/L (21-72); AST/SGOT 27 U/L (17-59); BLOOD UREA NITROGEN 18 mg/dL (9-20); GFR NON-AFRICAN AMERICAN > 60
[2018-02-18] MEDS ORDERED: cefTRIAXone 1 gm 1 GM/100 ML BAG IVPB ONE (23:04)
[2018-02-19 00:06] VITALS: BP 145/86; PULSE 87; RESP 16; TEMP 99; O2SAT 100
== END 2018-02-18 23:59 | disposition home or self-care (01) ==
LOC: C.ER 21:47
DX: L02.414 Cutaneous abscess of left upper limb (principal)
CPT/HCPCS: 10060; 80053; 82803; 85025; 87040; 87070; 87181; 96361; 96365; 96366; 99284; J0696; J7030